=== PATIENT | female | born 1955 | race Hispanic/Latino ===

== ENCOUNTER 2019-05-09 19:34 | Observation (INO) | payer BC ==
[~2019-05-09] VITALS: Ht 149.9 cm; Wt 92.8 kg
[2019-05-09 20:19] LABS: BASOPHILS % (AUTO) 0.5 % (0.0-5.0); EOSINOPHILS % (AUTO) 0.7 % (0.0-8.0); LYMPHOCYTES % (AUTO) 24.1 % (21.0-51.0); MEAN CORPUSCULAR HEMOGLOBIN 27.6 pg (27.0-33.0); MEAN CORPUSCULAR HGB CONC 32.4 g/dL (32.0-36.0); MONOCYTES % (AUTO) 4.9 % (3.0-13.0); NEUTROPHILS % (AUTO) 69.4 % (40.0-77.0); PLATELET COUNT (AUTO) 387 K/uL (130-400); RED BLOOD CELL COUNT(AUTO) 5.88 MIL/uL (4.00-5.50); RED CELL DISTRIBUTION WIDTH 13.5 % (11.0-15.5); WHITE BLOOD COUNT (AUTO) 18.7 K/uL (4.8-10.8)
[2019-05-09] MEDS ORDERED: SODIUM CHLORIDE 0.9% 1000ML 1,000 ML IV ONE ×3 (20:20→22:59)
[2019-05-09 20:24] LABS: APPEARANCE,URINE Clear (CLEAR); BILIRUBIN,URINE Negative (NEGATIVE); COLOR,URINE Yellow (YELLOW); GLUCOSE, URINE (UA) Negative (NEGATIVE); KETONES,URINE Negative (NEGATIVE); LEUKOCYTE ESTERASE ,URINE Trace (NEGATIVE); NITRATE,URINE Negative (NEGATIVE); OCCULT BLOOD,URINE Trace (NEGATIVE); PROTEIN,URINE Negative (NEGATIVE); UROBILINOGEN,URINE 0.2 mg/dL (0.2-1.0)
[2019-05-09 20:30] LABS: CARBON DIOXIDE 25 mmol/L (21-32); CHLORIDE 104 mmol/L (101-111); GLOMERULAR FILTR. RATE CALC 59 mL/min (>60); GLUCOSE,RANDOM 111 mg/dL (70-105); POTASSIUM 3.7 mmol/L (3.5-5.1); SODIUM SERUM 142 mmol/L (136-145); UREA NITROGEN, BLOOD 17 mg/dL (7-18)
[2019-05-09 20:32] LABS: AMPHET/METH SCREEN,URINE NEGATIVE (NEGATIVE); BARBITURATE SCREEN, URINE NEGATIVE (NEGATIVE); BENZODIAZEPINES SCREEN,URINE NEGATIVE (NEGATIVE); CANNABINOID SCREEN,URINE NEGATIVE (NEGATIVE); COCAINE SCREEN,URINE NEGATIVE (NEGATIVE); OPIATE SCREEN,URINE NEGATIVE (NEGATIVE); PHENCYCLIDINE SCREEN,URINE NEGATIVE (NEGATIVE)
[2019-05-09 20:36] LABS: BACTERIA,URINE Rare /HPF (None Seen); RBC,URINE 0-1 /HPF (0-1); SQUAMOUS EPITHELIAL CELL,UR Rare /HPF (0-2)
[2019-05-09 20:36] LABS: ALANINE AMINOTRANSFERASE 82 U/L (12-78); ALBUMIN 3.9 g/dL (3.5-5.0); ASPARTATE AMINOTRANSFERASE 49 U/L (10-37); BILIRUBIN,TOTAL 0.6 mg/dL (0.2-1.0); CREATINE KINASE, TOTAL 136 U/L (21-232); TOTAL PROTEIN, SERUM 8.8 g/dL (6.0-8.3)
[2019-05-09 20:43] LABS: SALICYLATE < 2.8 mg/dL (2.8-20.0)
[2019-05-09 20:45] LABS: ACETAMINOPHEN < 1 mcg/mL (10-30); ALCOHOL, BLOOD < 3 mg/dL (0-10)
[2019-05-09] MEDS ORDERED: LEVOFLOXACIN 500 MG/D5W 100 ML 100 ML ONE (22:58)
[2019-05-09] MEDS ORDERED: LORAZEPAM 1 MG TABLET ONE (22:58)
[2019-05-09] MEDS ORDERED: CEFTRIAXONE SODIUM 1 GM ONE (22:58)
[2019-05-09] MEDS ORDERED: LORAZEPAM 1 MG TABLET PO PRN (23:15)
[2019-05-09] MEDS: SODIUM CHLORIDE 0.9% 1000ML 1,000 ML IV SCH (23:15)
[2019-05-10 03:23] VITALS: BP 155/83
--- NOTE | 2019-05-10 03:23 | NUR ---
Admission note: Admitted pt to floor via wheelchair from ER. Fully awake and responsive. Amb indep. Placed in bed comfortably. Assessment done. ( See CPOE flow chart for full assessment). Plan of care initiated. Oriented to room and use of call light. Procedures and policies explained. Verbalized understanding. Cold packs applied to forehead as she was complaining of migraine attack - verbalized relief. Plan of care initiated. Has IV site to left hand # 20 gauge attached to NS 1L at the level of 800 ml with a rate of 75 ml/hr via dial flow - site patent and intact. Monitored for any changes in condition. Cared for and needs attended. No apparent distress noted. Endorsed to AM shift accordingly.
[2019-05-10 04:46] LABS: HEMATOCRIT 44.8 % (36-48); MEAN CORPUSCULAR HEMOGLOBIN 27.6 pg (27.0-33.0); MEAN CORPUSCULAR HGB CONC 32.4 g/dL (32.0-36.0); MEAN CORPUSCULAR VOLUME 85.3 fL (79-99); PLATELET COUNT (AUTO) 286 K/uL (130-400); RED BLOOD CELL COUNT(AUTO) 5.25 MIL/uL (4.00-5.50); RED CELL DISTRIBUTION WIDTH 13.5 % (11.0-15.5); WHITE BLOOD COUNT (AUTO) 15.3 K/uL (4.8-10.8)
[2019-05-10 05:02] LABS: POTASSIUM 3.4 mmol/L (3.5-5.1)
[2019-05-10 06:03] LABS: BAND NEUTROPHILS % (MANUAL) 3 % (0-2); EOSINOPHILS % (MANUAL) 2 % (1-6); LYMPHOCYTES % (MANUAL) 25 % (22-44); MONOCYTES % (MANUAL) 4 % (2-9); REACTIVE LYMPHOCYTES 2 % (0-0); SEGMENTED NEUTROPHILS % 64 % (40-70)
[2019-05-10 06:04] LABS: MAN.DIFF COMMENT-IMPRESSION MANUAL DIFFERENTIAL
--- NOTE | 2019-05-10 07:30 | NUR ---
NURSE WENT IN TO SEE PATIENT DURING SHIFT REPORT. PATIENT VERY AGITATED AND STATES THAT SHE HAS NO SLEPT FOR 4 DAYS DUE TO ANXIETY. PATIENT SHAKING LEGS AND TAKING FAST. PATIENT STATES THAT SHE IS CURRENTLY NOT ON ANY MEDICATION AND HAS NOT EVER SEEN A PSYCHIATRICS IN THE PAST. NURSE ASKED IF PATIENT HAS EVER HAD EPISODES WHERE SHE IS UNABLE TO SLEEP FOR DAYS. PATIENT STATS SHE HAS ABOUT A YEAR AGO. PATIENT STATES THAT WHATEVER THEY GAVE HER IN THE ER DID NOT WORK AND SHE HAS A HIGH TOLERANCE FOR PAIN MEDICATION DUE TO HAVING MIGRAINES. PATIENT WOULD LIKE SOMETHING THAT "WOULD JUST KNOCK ME OUT".
[2019-05-10 08:02] VITALS: BP 162/103
--- NOTE | 2019-05-10 08:04 | NUR ---
Spoke to Dr. Navarro to notify of K+ 3.4, exhibiting manic symptoms such as lack of sleep for days, animated gestures, excited speech and erratic thoughts when describing events, elevated BP of 162/103, HR 100 and patient's request for Ambien as sleep aid. Received orders for potassium protocol, Lorazepam 1mg PO TID PRN for anxiety and clonidine 0.1 mg for systolic BP >160 PRN. No Psych consult at this time.
[2019-05-10] MEDS ORDERED: POTASSIUM CHLORIDE 20MEQ/100ML 100 ML IV PRN ×2 (08:15)
[2019-05-10] MEDS ORDERED: LIDOCAINE HCL-MPF 1% 2ML VIAL IV PRN ×2 (08:15)
[2019-05-10] MEDS ORDERED: LORAZEPAM 1 MG TABLET PO PRN (08:15)
[2019-05-10] MEDS ORDERED: POTASSIUM CHLORIDE 10% ELIXIR 20 MEQ/15 ML UDCUP PO PRN (08:15)
[2019-05-10] MEDS ORDERED: FLU VACC QS2019-20 36MOS UP/PF 60 MCG/0.5 ML ML IM ONE (09:00)
[2019-05-10] MEDS: CLONIDINE HCL 0.1 MG TABLET PO PRN (09:45)
[2019-05-10] MEDS: POTASSIUM CHLORIDE 20 MEQ ERTAB PO PRN ×2 (09:46→15:35)
--- NOTE | 2019-05-10 10:47 | NUR ---
Called Dr. Rubalcava's office to notify of consult. Per Miranda in office, Dr. Rubalcava in [facility] all day, but will notify doctor of consult. Notified Miranda that patient was pending screening for discharge.
[2019-05-10 11:47] VITALS: BP 161/85
[2019-05-10] MEDS: SODIUM CHLORIDE 0.9% 1000ML 1,000 ML IV SCH (11:56)
--- NOTE | 2019-05-10 14:45 | NUR ---
INITIAL SW met with patient. Patient lives with son, Festus Larson Jr. No home services. Patient is able to complete ADL's independently and drives. PCP is Dr. Navarro. Pharmacy is [facility] located on [address]. DCP is home. Addendum: 05/10/19 at 1447 by HAILEE VIERA SS Amended: Links added.
--- NOTE | 2019-05-10 14:45 | NUR ---
NURSE ROUNDING ON PATIENT AND PATIENT IS ASLEEP.
[2019-05-10 16:53] VITALS: BP 159/71
[2019-05-10 20:00] VITALS: BP 141/88
[2019-05-10] MEDS ORDERED: ZOLPIDEM TARTRATE 5 MG TAB PO SCH (21:00)
[2019-05-10] MEDS ORDERED: LEVOFLOXACIN 500 MG/D5W 100 ML 100 ML IV SCH (23:15)
[2019-05-11] VITALS: BP 155/81
[2019-05-11] MEDS: SODIUM CHLORIDE 0.9% 1000ML 1,000 ML IV SCH (01:03)
[2019-05-11 04:00] VITALS: BP 163/74
[2019-05-11 04:19] LABS: HEMATOCRIT 42.5 % (36-48); MEAN CORPUSCULAR HEMOGLOBIN 27.6 pg (27.0-33.0); MEAN CORPUSCULAR HGB CONC 32.2 g/dL (32.0-36.0); MEAN CORPUSCULAR VOLUME 85.5 fL (79-99); PLATELET COUNT (AUTO) 257 K/uL (130-400); RED BLOOD CELL COUNT(AUTO) 4.97 MIL/uL (4.00-5.50); RED CELL DISTRIBUTION WIDTH 13.6 % (11.0-15.5); WHITE BLOOD COUNT (AUTO) 13.1 K/uL (4.8-10.8)
[2019-05-11 04:31] LABS: BAND NEUTROPHILS % (MANUAL) 5 % (0-2); BASOPHILS % (MANUAL) 1 % (0-2); EOSINOPHILS % (MANUAL) 1 % (1-6); LYMPHOCYTES % (MANUAL) 30 % (22-44); MAN.DIFF COMMENT-IMPRESSION MANUAL DIFFERENTIAL; MONOCYTES % (MANUAL) 3 % (2-9); PLATELET MORPHOLOGY COMMENT ADEQUATE; SEGMENTED NEUTROPHILS % 60 % (40-70)
[2019-05-11] MEDS: CLONIDINE HCL 0.1 MG TABLET PO PRN (04:37)
[2019-05-11 08:00] VITALS: BP 167/79
--- NOTE | 2019-05-11 11:09 | NUR ---
AMBULATORY Addendum: 05/11/19 at 1119 by COY BRINK RN RN Amended: Toni added.
[2019-05-11 12:00] VITALS: BP 160/80
[2019-05-11 16:00] VITALS: BP 187/96
[2019-05-11 18:20] VITALS: BP 143/76
--- NOTE | 2019-05-11 18:27 | NUR ---
Rec'd call from Dr. Navarro, discharge orders rec'd. Notified Dr. Navarro WBC's still 13.1, stated "That's ok." Still will discharge pt. When asked if any new rx, stated no abx, no ambien, no new rx. instructed to have pt follow up in office 2 Fridays from today, (05/25). Orders entered as given.
== END 2019-05-11 20:15 | disposition home or self-care (01) ==
LOC: EDH 19:34 → EDHIP 22:36 → 4DH 05-10 01:50
PROVIDERS: ADMIT Internal Medicine; ATTEND Internal Medicine
DX: J11.00 Influenza due to unidentified influenza virus with unspecified type of pneumonia (principal); I10 Essential (primary) hypertension; D72.829 Elevated white blood cell count, unspecified; G47.00 Insomnia, unspecified; F41.9 Anxiety disorder, unspecified; G43.909 Migraine, unspecified, not intractable, without status migrainosus; Z88.6 Allergy status to analgesic agent; Z90.49 Acquired absence of other specified parts of digestive tract; Z87.891 Personal history of nicotine dependence
CPT/HCPCS: 36415 ×3; 71045; 76705; 80048; 80053; 80305; 81001; 82550; 82948; 83605 ×2; 84484; 85025 ×3; 87040; 93005; 96365; 99285; G0008 ×2; G0378 ×3; G0480 ×2; G0481; J0696; J1956 ×2; J7030 ×4; Q2035

== ENCOUNTER 2019-07-06 21:36 | Emergency (ER) | payer BC ==
[2019-07-06 21:57] LABS: APPEARANCE,URINE Clear (CLEAR); BILIRUBIN,URINE Negative (NEGATIVE); COLOR,URINE Yellow (YELLOW); GLUCOSE, URINE (UA) Negative (NEGATIVE); KETONES,URINE Negative (NEGATIVE); LEUKOCYTE ESTERASE ,URINE Trace (NEGATIVE); NITRATE,URINE Negative (NEGATIVE); OCCULT BLOOD,URINE Small (NEGATIVE); PH,URINE 7.5 (5.0-8.0); PROTEIN,URINE Negative (NEGATIVE)
[2019-07-06 22:03] LABS: BACTERIA,URINE Few /HPF (None Seen); SQUAMOUS EPITHELIAL CELL,UR Few /HPF (0-2)
[2019-07-06] MEDS ORDERED: ONDANSETRON HCL 4 MG/2 ML VIAL ONE (22:05)
[2019-07-06] MEDS ORDERED: HYDROMORPHONE 1 MG/1 ML AMP ONE (22:05)
[2019-07-06 22:32] LABS: BASOPHILS % (AUTO) 0.6 % (0.0-5.0); EOSINOPHILS % (AUTO) 0.8 % (0.0-8.0); HEMATOCRIT 48.4 % (36-48); LYMPHOCYTES % (AUTO) 18.8 % (21.0-51.0); MEAN CORPUSCULAR HEMOGLOBIN 27.7 pg (27.0-33.0); MEAN CORPUSCULAR HGB CONC 32.6 g/dL (32.0-36.0); MEAN CORPUSCULAR VOLUME 84.8 fL (79-99); NEUTROPHILS % (AUTO) 73.4 % (40.0-77.0); PLATELET COUNT (AUTO) 315 K/uL (130-400); RED BLOOD CELL COUNT(AUTO) 5.71 MIL/uL (4.00-5.50); RED CELL DISTRIBUTION WIDTH 12.9 % (11.0-15.5); WHITE BLOOD COUNT (AUTO) 16.1 K/uL (4.8-10.8)
[2019-07-06 22:58] LABS: ALBUMIN 3.5 g/dL (3.5-5.0); BILIRUBIN,TOTAL 0.7 mg/dL (0.2-1.0); POTASSIUM 4.1 mmol/L (3.5-5.1); TOTAL PROTEIN, SERUM 8.3 g/dL (6.0-8.3)
[2019-07-06] MEDS ORDERED: CEFTRIAXONE SODIUM 1 GM ONE (23:12)
== END 2019-07-07 01:08 | disposition home or self-care (01) ==
LOC: EDH 21:36
DX: N39.0 Urinary tract infection, site not specified (principal); K83.1 Obstruction of bile duct; I10 Essential (primary) hypertension; F41.9 Anxiety disorder, unspecified; G43.909 Migraine, unspecified, not intractable, without status migrainosus; Z88.6 Allergy status to analgesic agent; Z88.8 Allergy status to other drugs, medicaments and biological substances; Z90.49 Acquired absence of other specified parts of digestive tract
CPT/HCPCS: 36415; 74176; 80053; 81001; 82550; 83690; 84484; 85025; 93005; 96374; 96375; 99285; J0696; J1170; J2405

== ENCOUNTER 2019-07-09 17:11 | Emergency (ER) | payer BC ==
[2019-07-09 17:36] LABS: APPEARANCE,URINE Cloudy (CLEAR); BILIRUBIN,URINE Negative (NEGATIVE); COLOR,URINE Dark Yellow (YELLOW); GLUCOSE, URINE (UA) Negative (NEGATIVE); KETONES,URINE Trace mg/dL (NEGATIVE); LEUKOCYTE ESTERASE ,URINE Trace (NEGATIVE); NITRATE,URINE Negative (NEGATIVE); OCCULT BLOOD,URINE Nonhemolyzed Trace (NEGATIVE); PROTEIN,URINE Trace mg/dL (NEGATIVE)
[2019-07-09 17:45] LABS: BASOPHILS % (AUTO) 0.7 % (0.0-5.0); EOSINOPHILS % (AUTO) 1.8 % (0.0-8.0); HEMATOCRIT 44.1 % (36-48); LYMPHOCYTES % (AUTO) 23.6 % (21.0-51.0); MEAN CORPUSCULAR HEMOGLOBIN 27.6 pg (27.0-33.0); MEAN CORPUSCULAR HGB CONC 32.2 g/dL (32.0-36.0); MEAN CORPUSCULAR VOLUME 85.8 fL (79-99); MONOCYTES % (AUTO) 4.7 % (3.0-13.0); NEUTROPHILS % (AUTO) 68.9 % (40.0-77.0); PLATELET COUNT (AUTO) 272 K/uL (130-400); RED BLOOD CELL COUNT(AUTO) 5.14 MIL/uL (4.00-5.50); RED CELL DISTRIBUTION WIDTH 12.5 % (11.0-15.5); WHITE BLOOD COUNT (AUTO) 13.1 K/uL (4.8-10.8)
[2019-07-09 17:51] LABS: CREATININE 1.1 mg/dL (0.5-1.5); POTASSIUM 3.7 mmol/L (3.5-5.1)
[2019-07-09 17:55] LABS: ALBUMIN 3.3 g/dL (3.5-5.0); BILIRUBIN,TOTAL 0.5 mg/dL (0.2-1.0); TOTAL PROTEIN, SERUM 8.2 g/dL (6.0-8.3)
[2019-07-09 17:55] LABS: BACTERIA,URINE Few /HPF (None Seen); MUCUS,URINE Few LPF (None Seen); SQUAMOUS EPITHELIAL CELL,UR Few /HPF (0-2)
[2019-07-09] MEDS ORDERED: DOCUSATE SODIUM 100 MG CAP PO ONE (18:20)
[2019-07-09] MEDS ORDERED: HYOSCYAMINE SULFATE 0.125 MG TAB.SUBL SL ONE (18:20)
[2019-07-09 18:35] LABS: AMYLASE 46 U/L (25-115); LIPASE 82 U/L (114-286)
== END 2019-07-09 18:39 | disposition home or self-care (01) ==
LOC: EDH 17:11
DX: K59.00 Constipation, unspecified (principal); N39.0 Urinary tract infection, site not specified; I10 Essential (primary) hypertension; F41.9 Anxiety disorder, unspecified; G43.909 Migraine, unspecified, not intractable, without status migrainosus; Z90.49 Acquired absence of other specified parts of digestive tract; Z88.8 Allergy status to other drugs, medicaments and biological substances; Z87.891 Personal history of nicotine dependence
CPT/HCPCS: 36415; 71045; 74176; 80053; 81001; 82150; 82550; 83690; 84484; 85025; 93005

== ENCOUNTER 2020-06-14 00:34 | Inpatient (IN) | payer MEDICARE ==
[~2020-06-14] VITALS: Ht 149.9 cm; Wt 103.1 kg
[2020-06-14] VITALS (7 sets, daily range): BP systolic 117–154; BP diastolic 52–70
[2020-06-14] MEDS ORDERED: MV-M1TAB20 PO (02:28)
[2020-06-14] MEDS ORDERED: ALBUHFA IH (02:30)
[2020-06-14] MEDS ORDERED: TRAZ-253 PO (02:33)
[2020-06-14] MEDS ORDERED: ONDANSETRON 4MG INJ IV PRN (04:00)
[2020-06-14] MEDS ORDERED: DIPHENHYDRAMINE HCL 25 MG CAPSULE PO PRN (04:00)
[2020-06-14] MEDS: SOLU-MEDROL 125MG VIAL IV SCH ×3 (04:00→22:03)
[2020-06-14] MEDS ORDERED: NITROGLYCERIN 0.4 MG SL TAB SL PRN (04:00)
[2020-06-14] MEDS ORDERED: DiphenhydrAMINE HCL 50 MG/ML VIAL IV PRN ×2 (04:00→15:30)
[2020-06-14] MEDS ORDERED: LACTULOSE 20 GM/30 ML UDCUP PO PRN (04:00)
[2020-06-14] MEDS ORDERED: ACETAMINOPHEN 325 MG TAB PO PRN ×2 (04:00)
[2020-06-14] MEDS ORDERED: MAG/ALUM/SIMETH 30 ML UDCUP PO PRN (04:00)
[2020-06-14] MEDS ORDERED: GUAIFENESIN-DM 200/20 MG 10 ML PO PRN (04:00)
[2020-06-14] MEDS ORDERED: TRAMADOL HCL 50 MG TABLET ONE (04:24)
[2020-06-14 04:50] LABS: APPEARANCE,URINE Cloudy (CLEAR); BILIRUBIN,URINE Negative (NEGATIVE); COLOR,URINE Yellow (YELLOW); GLUCOSE, URINE (UA) Negative (NEGATIVE); KETONES,URINE Negative (NEGATIVE); LEUKOCYTE ESTERASE ,URINE Trace (NEGATIVE); NITRATE,URINE Negative (NEGATIVE); OCCULT BLOOD,URINE Small (NEGATIVE); PROTEIN,URINE Trace mg/dL (NEGATIVE)
[2020-06-14 05:41] LABS: BASOPHILS % (AUTO) 0.2 % (0.0-5.0); HEMATOCRIT 39.2 % (36-48); LYMPHOCYTES % (AUTO) 10.1 % (21.0-51.0); MEAN CORPUSCULAR HEMOGLOBIN 28.5 pg (27.0-33.0); MEAN CORPUSCULAR HGB CONC 31.9 g/dL (32.0-36.0); MEAN CORPUSCULAR VOLUME 89.3 fL (79-99); MONOCYTES % (AUTO) 1.1 % (3.0-13.0); NEUTROPHILS % (AUTO) 88.1 % (40.0-77.0); PLATELET COUNT (AUTO) 209 K/uL (130-400); RED BLOOD CELL COUNT(AUTO) 4.39 MIL/uL (4.00-5.50); RED CELL DISTRIBUTION WIDTH 13.1 % (11.0-15.5); WHITE BLOOD COUNT (AUTO) 11.9 K/uL (4.8-10.8)
[2020-06-14] MEDS ORDERED: SOLU-MEDROL 40MG VIAL ONE (05:47)
[2020-06-14 05:53] LABS: BACTERIA,URINE Few /HPF (None Seen); WBC,URINE 0-1 /HPF (0-1)
[2020-06-14] MEDS: DOXYCYCLINE 100MG+NS 250ML 250 ML IV SCH ×2 (05:55→19:42)
[2020-06-14 06:10] LABS: ALBUMIN 2.9 g/dL (3.5-5.0); BILIRUBIN,TOTAL 0.7 mg/dL (0.2-1.0); CREATININE 0.9 mg/dL (0.5-1.5); CRP QUANTITATIVE 37.2 mg/L (0.00-9.0); POTASSIUM 3.9 mmol/L (3.5-5.1); TOTAL PROTEIN, SERUM 6.5 g/dL (6.0-8.3)
[2020-06-14] MEDS ORDERED: PHARMACY COMMUNICATION MISC SCH (07:30)
[2020-06-14] MEDS ORDERED: FLUTICASONE/VILANTEROL 1 EACH AER.POW.BA IH SCH (09:00)
[2020-06-14] MEDS ORDERED: ASPIRIN 325 MG TABLET PO SCH (09:00)
[2020-06-14] MEDS: FUROSEMIDE 40 MG TABLET PO SCH (09:05)
[2020-06-14] MEDS: CYCLOBENZAPRINE HCL 10 MG TABLET PO SCH ×3 (09:06→21:46)
[2020-06-14] MEDS: TRAMADOL HCL 50 MG TABLET PO PRN ×2 (09:06→16:09)
[2020-06-14] MEDS: FAMOTIDINE 20MG VIAL IV SCH ×2 (09:06→22:03)
[2020-06-14] MEDS: ENOXAPARIN SODIUM 40 MG/0.4 ML SYRINGE SQ SCH (09:07)
[2020-06-14] MEDS: IPRATROPIUM/ALBUTEROL SULFATE 3 ML SOLUTION IH SCH ×5 (10:00→22:25)
[2020-06-14] MEDS: 0.9%NACL 1000ML 1,000 ML IV SCH (19:42)
[2020-06-15] MEDS: IPRATROPIUM/ALBUTEROL SULFATE 3 ML SOLUTION IH SCH ×4 (01:14→14:02)
[2020-06-15 04:54] VITALS: BP 101/50
[2020-06-15] MEDS: SOLU-MEDROL 125MG VIAL IV SCH (04:55)
[2020-06-15] MEDS: DOXYCYCLINE 100MG+NS 250ML 250 ML IV SCH (04:55)
[2020-06-15] MEDS: TRAMADOL HCL 50 MG TABLET PO PRN (05:11)
[2020-06-15 05:43] LABS: BASOPHILS % (AUTO) 0.1 % (0.0-5.0); HEMATOCRIT 35.6 % (36-48); LYMPHOCYTES % (AUTO) 5.2 % (21.0-51.0); MEAN CORPUSCULAR HEMOGLOBIN 28.6 pg (27.0-33.0); MEAN CORPUSCULAR HGB CONC 32.3 g/dL (32.0-36.0); MEAN CORPUSCULAR VOLUME 88.6 fL (79-99); MONOCYTES % (AUTO) 3.7 % (3.0-13.0); NEUTROPHILS % (AUTO) 90.5 % (40.0-77.0); PLATELET COUNT (AUTO) 191 K/uL (130-400); RED BLOOD CELL COUNT(AUTO) 4.02 MIL/uL (4.00-5.50); RED CELL DISTRIBUTION WIDTH 13.6 % (11.0-15.5); WHITE BLOOD COUNT (AUTO) 19.3 K/uL (4.8-10.8)
[2020-06-15 06:03] LABS: ALBUMIN 2.6 g/dL (3.5-5.0); BILIRUBIN,TOTAL 0.4 mg/dL (0.2-1.0); CREATININE 1.1 mg/dL (0.5-1.5); CRP QUANTITATIVE 18.4 mg/L (0.00-9.0); POTASSIUM 3.7 mmol/L (3.5-5.1); TOTAL PROTEIN, SERUM 6.6 g/dL (6.0-8.3)
[2020-06-15] MEDS: 0.9%NACL 1000ML 1,000 ML IV SCH (07:40)
[2020-06-15 08:10] VITALS: BP 123/60
[2020-06-15] MEDS: FUROSEMIDE 40 MG TABLET PO SCH (08:52)
[2020-06-15] MEDS: CYCLOBENZAPRINE HCL 10 MG TABLET PO SCH ×2 (08:52→14:12)
[2020-06-15] MEDS: FAMOTIDINE 20MG VIAL IV SCH (08:53)
[2020-06-15] MEDS: ENOXAPARIN SODIUM 40 MG/0.4 ML SYRINGE SQ SCH (08:53)
[2020-06-15] MEDS ORDERED: FLUTICASONE/VILANTEROL 1 EACH AER.POW.BA IH SCH (09:00)
[2020-06-15 11:28] VITALS: BP 156/71
[2020-06-15] MEDS ORDERED: FURO40TA7 PO (15:44)
[2020-06-15] MEDS ORDERED: LEVO500T90 PO (15:44)
[2020-06-15] MEDS ORDERED: PRED20B PO (15:44)
[2020-06-15] MEDS ORDERED: GUAFACSF5L PO (15:48)
[2020-06-15 16:27] VITALS: BP 141/73
[2020-06-15] MEDS ORDERED: BENZ-39 PO (18:12)
[2020-06-15] MEDS ORDERED: SOLU-MEDROL 125MG VIAL IV SCH (21:00)
[2020-06-16] MEDS ORDERED: PREDNISONE 20 MG TABLET PO SCH (09:00)
== END 2020-06-15 18:53 | disposition home or self-care (01) | DRG 191 ==
LOC: 3CH 01:20
PROVIDERS: ADMIT Family Medicine; ATTEND Family Medicine
DX: J44.1 Chronic obstructive pulmonary disease with (acute) exacerbation (principal); Z68.42 Body mass index [BMI] 45.0-49.9, adult; J81.1 Chronic pulmonary edema; J44.9 Chronic obstructive pulmonary disease, unspecified; I10 Essential (primary) hypertension; G43.909 Migraine, unspecified, not intractable, without status migrainosus; G47.33 Obstructive sleep apnea (adult) (pediatric); E66.01 Morbid (severe) obesity due to excess calories; D72.828 Other elevated white blood cell count; T38.0X5A Adverse effect of glucocorticoids and synthetic analogues, initial encounter; Y92.89 Other specified places as the place of occurrence of the external cause; Z88.6 Allergy status to analgesic agent; Z88.8 Allergy status to other drugs, medicaments and biological substances; Z87.891 Personal history of nicotine dependence; Z87.01 Personal history of pneumonia (recurrent); Z80.0 Family history of malignant neoplasm of digestive organs; Z82.3 Family history of stroke; Z82.5 Family history of asthma and other chronic lower respiratory diseases; Z82.49 Family history of ischemic heart disease and other diseases of the circulatory system
CPT/HCPCS: 36415; 70450; 71045; 71250; 76700; 80053; 81001; 82948; 83880; 84145; 85025; 85378; 86140; 94640; 94664; G0378; J1200; J1650; J2405; J2920; J2930; J3490

== ENCOUNTER 2022-12-08 08:20 | Emergency (ER) | payer MEDICARE ==
[~2022-12-08] VITALS: Ht 149.9 cm; Wt 90.7 kg
[~2022-12-08 08:20] MED LIST: ALBUHFA IH; BENZ-39 PO; FURO40TA7 PO; LEVO-70 PO; MV-M1TAB20 PO; PRED20B PO; TRAZ-253 PO
[2022-12-08] MEDS ORDERED: HYDROCODONE/ACETAMINOPHEN 10/325 MG TAB PO ONE (10:30)
[2022-12-08] MEDS ORDERED: DEXAMETHASONE SOD PHOSPHATE 4 MG/ML 1ML VIAL IV ONE (12:00)
[2022-12-08] MEDS ORDERED: METOCLOPRAMIDE 10 MG/2 ML VIAL IVP ONE (12:00)
[2022-12-08] MEDS ORDERED: MORPHINE 4 MG SYG IVP ONE (12:00)
[2022-12-08] MEDS ORDERED: FAMOTIDINE 20MG VIAL IV ONE (12:00)
[2022-12-08 12:55] VITALS: BP 152/97; PULSE 95; RESP 18; O2SAT 97
[2022-12-08] MEDS ORDERED: METO-296 PO (12:59)
[2022-12-08] MEDS ORDERED: MELO-106 PO (12:59)
[2022-12-08] MEDS ORDERED: SUMA25TA25 PO (12:59)
== END 2022-12-08 13:23 | disposition home or self-care (01) ==
LOC: EDH 08:20
DX: G43.909 Migraine, unspecified, not intractable, without status migrainosus (principal); I16.0 Hypertensive urgency; M25.561 Pain in right knee; I10 Essential (primary) hypertension; Z79.52 Long term (current) use of systemic steroids; Z79.899 Other long term (current) drug therapy; Z88.6 Allergy status to analgesic agent; Z90.49 Acquired absence of other specified parts of digestive tract
CPT/HCPCS: 99284; 96374; 96375; 73562; J1100; J3490; J2270; J2765

== ENCOUNTER 2023-05-04 15:27 | Emergency (ER) | payer MEDICARE ==
[~2023-05-04] VITALS: Ht 152.4 cm; Wt 90.7 kg
[~2023-05-04 15:27] MED LIST changes: +MELO-106 PO; +METO-296 PO; +SUMA25TA25 PO
[2023-05-04 16:26] LABS: BASOPHILS # (AUTO) 0.11 K/uL (0.00-0.20); BASOPHILS % (AUTO) 0.9 % (0.0-5.0); EOSINOPHILS # (AUTO) 0.28 K/uL (0.00-0.70); EOSINOPHILS % (AUTO) 2.4 % (0.0-8.0); HEMATOCRIT 45.7 % (36-48); IMMATURE GRANULOCYTE ABSOLUTE 0.04 K/uL (0-1); LYMPHOCYTES # (AUTO) 3.2 K/uL (1.0-4.8); LYMPHOCYTES % (AUTO) 27.8 % (21.0-51.0); MEAN CORPUSCULAR HEMOGLOBIN 28.3 pg (27.0-33.0); MEAN CORPUSCULAR HGB CONC 32.4 g/dL (32.0-36.0); MEAN CORPUSCULAR VOLUME 87.4 fL (79-99); MONOCYTES # (AUTO) 0.8 K/uL (0.1-1.0); MONOCYTES % (AUTO) 7.3 % (3.0-13.0); NEUTROPHILS # (AUTO) 7.1 K/uL (1.8-7.7); NEUTROPHILS % (AUTO) 61.3 % (40.0-77.0); PLATELET COUNT (AUTO) 235 K/uL (130-400); RED BLOOD CELL COUNT(AUTO) 5.23 MIL/uL (4.00-5.50); RED CELL DISTRIBUTION WIDTH 12.9 % (11.0-15.5); WHITE BLOOD COUNT (AUTO) 11.6 K/uL (4.8-10.8)
[2023-05-04 16:28] LABS: APPEARANCE,URINE CLEAR (CLEAR); BILIRUBIN,URINE NEGATIVE (NEGATIVE); COLOR,URINE LIGHT-YELLOW (YELLOW); GLUCOSE, URINE (UA) NEGATIVE (NEGATIVE); KETONES,URINE NEGATIVE (NEGATIVE); LEUKOCYTE ESTERASE ,URINE 250 Leu/uL (NEGATIVE); NITRATE,URINE NEGATIVE (NEGATIVE); PH,URINE 5.5 (5.0-8.0); PROTEIN,URINE NEGATIVE (NEGATIVE); UROBILINOGEN,URINE 0.2 mg/dL (0.2-1.0)
[2023-05-04 16:30] LABS: ADD UA MICROSCOPIC YES
[2023-05-04 16:34] LABS: MUCUS,URINE RARE LPF (None Seen); SQUAMOUS EPITHELIAL CELL,UR RARE /HPF (0-2)
[2023-05-04 16:35] LABS: CREATININE 1.3 mg/dL (0.5-1.5); POTASSIUM 3.7 mmol/L (3.5-5.1)
[2023-05-04 16:40] LABS: ALBUMIN 3.3 g/dL (3.5-5.0); BILIRUBIN,TOTAL 0.8 mg/dL (0.2-1.0)
[2023-05-04 19:50] VITALS: BP 153/87; PULSE 70; RESP 17; O2SAT 98
[2023-05-04] MEDS: MAG/ALUM/SIMETH 30 ML UDCUP PO ONE (20:00)
[2023-05-04] MEDS: DEXAMETHASONE SOD PHOSPHATE 4 MG/ML 1ML VIAL IM STA (20:00)
[2023-05-04] MEDS: PANTOPRAZOLE 40 MG TAB DR PO SCH (20:00)
[2023-05-04] MEDS: ONDANSETRON 4MG TABLET PO ONE (20:15)
== END 2023-05-04 20:25 | disposition home or self-care (01) ==
LOC: EDH 15:27
DX: G43.919 Migraine, unspecified, intractable, without status migrainosus (principal); R10.13 Epigastric pain; I10 Essential (primary) hypertension; Z79.1 Long term (current) use of non-steroidal anti-inflammatories (NSAID); Z79.52 Long term (current) use of systemic steroids; Z79.899 Other long term (current) drug therapy; Z88.6 Allergy status to analgesic agent; Z90.49 Acquired absence of other specified parts of digestive tract
CPT/HCPCS: 99285; 71045; 84484; 80053; 85025; 87088; 81001; 36415; 96372; 93005; Q0162; J1100

== ENCOUNTER 2023-05-15 01:26 | Emergency (ER) | payer MEDICARE ==
[~2023-05-15] VITALS: Ht 149.9 cm; Wt 88.9 kg
[2023-05-15 01:56] LABS: SARS-CoV-2, RNA, NAAT NEGATIVE SARS CoV-2 (NEGATIVE)
[2023-05-15 01:58] LABS: BASOPHILS # (AUTO) 0.09 K/uL (0.00-0.20); BASOPHILS % (AUTO) 0.4 % (0.0-5.0); EOSINOPHILS # (AUTO) 0.06 K/uL (0.00-0.70); EOSINOPHILS % (AUTO) 0.3 % (0.0-8.0); HEMATOCRIT 46.1 % (36-48); IMMATURE GRANULOCYTE ABSOLUTE 0.09 K/uL (0-1); LYMPHOCYTES # (AUTO) 2.9 K/uL (1.0-4.8); LYMPHOCYTES % (AUTO) 14.4 % (21.0-51.0); MEAN CORPUSCULAR VOLUME 85.1 fL (79-99); MONOCYTES # (AUTO) 0.9 K/uL (0.1-1.0); MONOCYTES % (AUTO) 4.6 % (3.0-13.0); NEUTROPHILS # (AUTO) 16.2 K/uL (1.8-7.7); NEUTROPHILS % (AUTO) 79.9 % (40.0-77.0); PLATELET COUNT (AUTO) 307 K/uL (130-400); RED BLOOD CELL COUNT(AUTO) 5.42 MIL/uL (4.00-5.50); RED CELL DISTRIBUTION WIDTH 13.6 % (11.0-15.5); WHITE BLOOD COUNT (AUTO) 20.3 K/uL (4.8-10.8)
[2023-05-15 01:59] LABS: INFLUENZA TYPE A Negative For Type A (NEGATIVE); INFLUENZA TYPE B Negative For Type B (NEGATIVE)
[2023-05-15] MEDS ORDERED: 0.9%NACL 1000ML 1,000 ML IV SCH (02:00)
[2023-05-15 02:07] LABS: CREATININE 1.1 mg/dL (0.5-1.5); POTASSIUM 3.7 mmol/L (3.5-5.1)
[2023-05-15 02:12] LABS: ALBUMIN 3.3 g/dL (3.5-5.0); BILIRUBIN,TOTAL 0.7 mg/dL (0.2-1.0); TOTAL PROTEIN, SERUM 8.3 g/dL (6.0-8.3)
[2023-05-15] MEDS: METOCLOPRAMIDE 10 MG/2 ML VIAL ONE (02:18)
[2023-05-15] MEDS: ONDANSETRON 4MG INJ IVP ONE (02:19)
[2023-05-15] MEDS: ONDANSETRON 4MG INJ ONE (02:19)
[2023-05-15] MEDS: METOCLOPRAMIDE 10 MG/2 ML VIAL IVP ONE (02:20)
[2023-05-15] MEDS: 0.9%NACL 1000ML 1,000 ML IV ONE (02:21)
[2023-05-15] MEDS: MORPHINE 2 MG SYG IVP ONE (02:22)
[2023-05-15] MEDS: HALOPERIDOL INJ 5 MG/ML VIAL IV SCH (02:59)
[2023-05-15 03:08] LABS: APPEARANCE,URINE CLEAR (CLEAR); BILIRUBIN,URINE NEGATIVE (NEGATIVE); COLOR,URINE LIGHT-YELLOW (YELLOW); GLUCOSE, URINE (UA) NEGATIVE (NEGATIVE); KETONES,URINE NEGATIVE (NEGATIVE); LEUKOCYTE ESTERASE ,URINE NEGATIVE Leu/uL (NEGATIVE); NITRATE,URINE NEGATIVE (NEGATIVE); OCCULT BLOOD,URINE NEGATIVE (NEGATIVE); PROTEIN,URINE NEGATIVE (NEGATIVE); UROBILINOGEN,URINE 0.2 mg/dL (0.2-1.0)
[2023-05-15 03:11] LABS: ADD UA MICROSCOPIC NO
[2023-05-15 04:45] VITALS: BP 142/74; PULSE 84; RESP 20; O2SAT 99
[2023-05-15] MEDS ORDERED: DICY20TA2 PO (04:56)
[2023-05-15] MEDS ORDERED: DIPH1TAB PO (04:56)
[2023-05-15] MEDS ORDERED: ONDA4TAB10 PO (04:56)
== END 2023-05-15 05:15 | disposition home or self-care (01) ==
LOC: EDH 01:26
DX: A08.4 Viral intestinal infection, unspecified (principal); N28.9 Disorder of kidney and ureter, unspecified; I10 Essential (primary) hypertension; Z79.1 Long term (current) use of non-steroidal anti-inflammatories (NSAID); Z79.52 Long term (current) use of systemic steroids; Z79.899 Other long term (current) drug therapy; Z88.6 Allergy status to analgesic agent; Z90.49 Acquired absence of other specified parts of digestive tract; Z20.822 Contact with and (suspected) exposure to COVID-19
CPT/HCPCS: 99285; 74176; 96374; 96375; 71045; 87635; 84484; 80053; 83690; 85025; 87804 ×2; 83605; 81003; 36415; 93005; J2270; J7030; J1630; J2405; J2765